=== PATIENT | female | born 1950 | race Caucasian/White ===

== ENCOUNTER → 2017-02-07 10:21 | Outpatient (CLI) | payer MEDICARE ==
[2015-12-29 12:46] VITALS: BMI 18.7
[~2017-02-07 10:21] MED LIST: BROVANA15 MCG/2 M INH; FLUTICASONE PRO16 GM NASAL; HYDROCODON-ACE1 EAC7 PO; IPRAT-ALBUT 0.5-3 ML UPD; MIRALAX17 GM PO; MUCINEX D1 TAB.SR . PO; PREDNISONE10 MG PO; PULMICORT0.5 MG/21 INH; SINGULAIR10 MG PO; XANAX1 MG PO
== END | disposition home or self-care (01) ==
LOC: D.CT 10:21
DX: S09.90XA Unspecified injury of head, initial encounter (principal); X58.XXXA Exposure to other specified factors, initial encounter; Y93.89 Activity, other specified; Y92.029 Unspecified place in mobile home as the place of occurrence of the external cause

== ENCOUNTER → 2017-07-18 08:10 | Outpatient (CLI) | payer MEDICARE ==
[2015-12-29 12:46] VITALS: BMI 18.7
== END | disposition home or self-care (01) ==
LOC: D.US 08:00
DX: E05.90 Thyrotoxicosis, unspecified without thyrotoxic crisis or storm (principal)

== ENCOUNTER 2018-03-04 19:15 | Inpatient (IN) | payer MEDICARE ==
[~2018-03-04] VITALS: Ht 167.6 cm; Wt 45.6 kg
--- NOTE | ~2018-03-04 | MORECARE ---
CASE MANAGEMENT DISCHARGE SUMMARY PATIENT: SHAR SALAZAR UNIT: [id number] ADM DATE: 03/04/18 AGE: 67 : 48 SEX: F ROOM/BED: D.2234 AUTHOR: MATT KRUSE PHYSICIAN: REFERRING PHYSICIAN: BATOOL OSORIO MD DATE OF SERVICE: 03/10/18 Discharge Plan Patient Name: SHAR SALAZAR Facility: [facility]:[place] : 1950 Planned Disposition: Inpatient Rehab Anticipated Discharge Date: Discharge Date: Expected LOS: Initial Reviewer: [email or web address] Initial Review Date: 03/09/2018 Generated: 03/10/18 1:50 pm Comments DCP- Discharge Planning Updated by [email or web address]: Kasie Charles on 03/10/18 11:[address] Called to the room by patient's daughter, Geovanna. She states the patient lives 50% of the time alone. States her brother stays in [facility] 50% of the time and with her mother the other 50%. States she would like to see her mother get inpatient rehab prior to returning home to help with strengthening. States they do not have a DME company at this time, but [facility] and neb meds. States at this time she is paying for her nebulizer meds at her pharmacy. States she does have a nebulizer, walker, BSC and a wheelchair. Discussed availability of inpatient rehab, SNF, and home health as well as DME needs. Patient and daughter are both agreeable to inpatient rehab prior to discharge if she qualifies. CM will continue to follow and assist with discharge planning/needs. DCP- Discharge Planning Updated by [email or web address]: Marlenejusten Randle on 03/09/18 3:[address] Patient Name: SHAR SALAZAR Admission Status: ER Accout number: [id number] Admission Date: 03-04-2018 : 1950 Admission Diagnosis: Attending: BATOOL OSORIO Current LOS: 5 Anticipated DC Date: Planned Disposition: Primary Insurance: MEDICARE A & B Discharge Planning Comments: CM spoke to patient and her son Nils to complete initial dc planning assessment. CM educated Nils on the CM role and verbal consent given by patient to complete assessment. Nils states his mother has become very weak and sob, states she is not on 02 at home and her copd is severe. He states she will need help when she is discharged. May need a SNF or rehab. May need HH, it is too early to tell. She currently has no assistance at home except for her son and daughter come to help her. He states she is unable to care for herself at this time. CM will follow and assist as needed with dc planning needs. Marketing Program Manager: Marlene Randle DCPIA - Discharge Planning Initial Assessment Updated by [email or web address]: Marlene Randle on 03/09/18 4:49 pm * Is the patient Alert and Oriented? No * Pharmacy [facility] * Preadmission Environment Home with Family * ADLs Partial Dependent * Partial ADLs (Assistance needed) Ambulation Dressing Toileting * Equipment Bedside Commode Cane Nebulizer Walker Wheelchair * List name and contact numbers for known caregivers / representatives who currently or will assist patient after discharge: ALLISON GARNETT, [phone] * Community resources currently utilized None * Additional services required to return to the preadmission environment? Yes * Can the patient safely return to the preadmission environment? No * Has this patient been hospitalized within the prior 30 days at any hospital? No Last DP export: 03/10/18 11:41 Patient Name: SHAR SALAZAR Page [id number] at 1250 All edits/amendments must be made on the electronic document DICTATION DATE: 03/10/181248 SUBASSEMBLER: DEVONTE 03/10/18 124 RPT#: [id number] DC DATE: STATUS: ADM IN [facility] [address] [place] [address] END OF REPORT
--- NOTE | ~2018-03-04 | MORECARE ---
CASE MANAGEMENT DISCHARGE SUMMARY PATIENT: SHAR SALAZAR UNIT: [id number] ADM DATE: 03/04/18 AGE: 67 : 48 SEX: F ROOM/BED: D.2234 AUTHOR: MATT KRUSE PHYSICIAN: REFERRING PHYSICIAN: BATOOL OSORIO MD DATE OF SERVICE: 03/10/18 Discharge Plan Patient Name: SHAR SALAZAR Facility: [facility]:[place] : 1950 Planned Disposition: Inpatient Rehab Anticipated Discharge Date: Discharge Date: Expected LOS: Initial Reviewer: [email or web address] Initial Review Date: 03/09/2018 Generated: 03/10/18 1:41 pm Comments DCP- Discharge Planning Updated by [email or web address]: Marlene Randle on 03/09/18 3:[address] Patient Name: SHAR SALAZAR Admission Status: ER Accout number: [id number] Admission Date: 03-04-2018 : 1950 Admission Diagnosis: Attending: BATOOL OSORIO Current LOS: 5 Anticipated DC Date: Planned Disposition: Primary Insurance: MEDICARE A & B Discharge Planning Comments: CM spoke to patient and her son Nils to complete initial dc planning assessment. CM educated Nils on the CM role and verbal consent given by patient to complete assessment. Nils states his mother has become very weak and sob, states she is not on 02 at home and her copd is severe. He states she will need help when she is discharged. May need a SNF or rehab. May need HH, it is too early to tell. She currently has no assistance at home except for her son and daughter come to help her. He states she is unable to care for herself at this time. CM will follow and assist as needed with dc planning needs. Life Insurance Salesperson: Marlene Randle DCPIA - Discharge Planning Initial Assessment Updated by [email or web address]: Marlene Randle on 03/09/18 4:49 pm * Is the patient Alert and Oriented? No * Pharmacy [facility] * Preadmission Environment Home with Family * ADLs Partial Dependent * Partial ADLs (Assistance needed) Ambulation Dressing Toileting * Equipment Bedside Commode Cane Nebulizer Walker Wheelchair * List name and contact numbers for known caregivers / representatives who currently or will assist patient after discharge: ALLISON GARNETT, [phone] * Community resources currently utilized None * Additional services required to return to the preadmission environment? Yes * Can the patient safely return to the preadmission environment? No * Has this patient been hospitalized within the prior 30 days at any hospital? No Last DP export: 03/09/18 4:00 Patient Name: SHAR SALAZAR Page [id number] at 1241 All edits/amendments must be made on the electronic document DICTATION DATE: 03/10/18 1241 HOT STRIP MILL INSPECTOR: DEVONTE 03/10/18 1241 RPT#: [id number] DC DATE: STATUS: ADM IN [facility] [address] [place] [address] END OF REPORT
--- NOTE | ~2018-03-04 | MORECARE ---
CASE MANAGEMENT DISCHARGE SUMMARY PATIENT: SHAR SALAZAR UNIT: [id number] ADM DATE: 03/04/18 AGE: 67 : 48 SEX: F ROOM/BED: D.2234 AUTHOR: MATT KRUSE PHYSICIAN: REFERRING PHYSICIAN: BATOOL OSORIO MD DATE OF SERVICE: 03/09/18 Discharge Plan Patient Name: SHAR SALAZAR Facility: [facility]:[place] : 1950 Planned Disposition: Anticipated Discharge Date: Discharge Date: Expected LOS: Initial Reviewer: [id number] Initial Review Date: 03/09/2018 Generated: 03/09/18 5:59 pm Comments DCP- Discharge Planning Updated by [email or web address]: Marlene Randle on 03/09/18 3:[address] Patient Name: SHAR SALAZAR Admission Status: ER Accout number: [id number] Admission Date: 03-04-2018 : 1950 Admission Diagnosis: Attending: BATOOL OSORIO Current LOS: 5 Anticipated DC Date: Planned Disposition: Primary Insurance: MEDICARE A & B Discharge Planning Comments: CM spoke to patient and her son Nils to complete initial dc planning assessment. CM educated Nils on the CM role and verbal consent given by patient to complete assessment. Nils states his mother has become very weak and sob, states she is not on 02 at home and her copd is severe. He states she will need help when she is discharged. May need a SNF or rehab. May need HH, it is too early to tell. She currently has no assistance at home except for her son and daughter come to help her. He states she is unable to care for herself at this time. CM will follow and assist as needed with dc planning needs. Scoring Machine Operator: Marlene Randle DCPIA - Discharge Planning Initial Assessment Updated by [email or web address]: Marlene Randle on 03/09/18 4:49 pm * Is the patient Alert and Oriented? No * Pharmacy [facility] * Preadmission Environment Home with Family * ADLs Partial Dependent * Partial ADLs (Assistance needed) Ambulation Dressing Toileting * Equipment Bedside Commode Cane Nebulizer Walker Wheelchair * List name and contact numbers for known caregivers / representatives who currently or will assist patient after discharge: ALLISON GARNETT, [phone] * Community resources currently utilized None * Additional services required to return to the preadmission environment? Yes * Can the patient safely return to the preadmission environment? No * Has this patient been hospitalized within the prior 30 days at any hospital? No Last DP export: 03/09/18 3:53 Patient Name: SHAR SALAZAR Page [id number] at 1700 All edits/amendments must be made on the electronic document DICTATION DATE: 03/09/181658 NUTRITIONAL ASSISTANT: DEVONTE 03/09/181658 RPT#: [id number] DC DATE: STATUS: ADM IN [facility] [address] [place] [address] END OF REPORT
--- NOTE | ~2018-03-04 | MORECARE ---
CASE MANAGEMENT DISCHARGE SUMMARY PATIENT: SHAR SALAZAR UNIT: [id number] ADM DATE: 03/04/18 AGE: 67 : 48 SEX: F ROOM/BED: D.2234 AUTHOR: AIXADOC PHYSICIAN: REFERRING PHYSICIAN: ABTOOL OSORIO MD DATE OF SERVICE: 03/13/18 Discharge Plan Patient Name: SHAR SALAZAR Facility: [facility]:[place] : 1950 Planned Disposition: Inpatient Rehab Anticipated Discharge Date: Discharge Date: Expected LOS: Initial Reviewer: [email or web address] Initial Review Date: 03/09/2018 Generated: 03/13/18 12:43 pm Comments DCP- Discharge Planning Updated by [email or web address]: Kasie Soto on 03/13/18 10:[address] patient's daughter, Geovanna Rojas, called me today. She states her brother and her have been discussing comfort care/hospice and would like to speak with hospice. I informed her of the different hospice agencies and she would like her mother to stay in house at [facility] if possible. States she and her family will be here at 2:30 to speak with [facility]. I called Dr. Osorio and order received for hospice to eval and admit if appropriate. I called [facility] and spoke to Bing and she states she will have a nurse here at 2:30 to speak with them. Primary nurse Lois informed. CM will continue to follow and assist with discharge planning/needs. DCP- Discharge Planning Updated by [email or web address]: Kasie Soto on 03/10/18 11:[address] Called to the room by patient's daughter, Geovanna. She states the patient lives 50% of the time alone. States her brother stays in [facility] 50% of the time and with her mother the other 50%. States she would like to see her mother get inpatient rehab prior to returning home to help with strengthening. States they do not have a DME company at this time, but would use [employer] for home oxygen and neb meds. States at this time she is paying for her nebulizer meds at her pharmacy. States she does have a nebulizer, walker, BSC and a wheelchair. Discussed availability of inpatient rehab, SNF, and home health as well as DME needs. Patient and daughter are both agreeable to inpatient rehab prior to discharge if she qualifies. CM will continue to follow and assist with discharge planning/needs. DCP- Discharge Planning Updated by [id number]: Marlene Randle on 03/09/18 3:[address] Patient Name: SHAR SALAZAR Admission Status: ER Accout number: [id number] Admission Date: 03-04-2018 : 1950 Admission Diagnosis: Attending: BATOOL OSORIO Current LOS: 5 Anticipated DC Date: Planned Disposition: Primary Insurance: MEDICARE A & B Discharge Planning Comments: CM spoke to patient and her son Nils to complete initial dc planning assessment. CM educated Nils on the CM role and verbal consent given by patient to complete assessment. Nils states his mother has become very weak and sob, states she is not on 02 at home and her copd is severe. He states she will need help when she is discharged. May need a SNF or rehab. May need HH, it is too early to tell. She currently has no assistance at home except for her son and daughter come to help her. He states she is unable to care for herself at this time. CM will follow and assist as needed with dc planning needs. Senior Devops Engineer: Marlene Razia DCPIA - Discharge Planning Initial Assessment Updated by [email or web address]: Marlene Randle on 03/09/18 4:49 pm * Is the patient Alert and Oriented? No * Pharmacy [facility] * Preadmission Environment Home with Family * ADLs Partial Dependent * Partial ADLs (Assistance needed) Ambulation Dressing Toileting * Equipment Bedside Commode Cane Nebulizer Walker Wheelchair * List name and contact numbers for known caregivers / representatives who currently or will assist patient after discharge: ALLISON GARNETT, [phone] * Community resources currently utilized None * Additional services required to return to the preadmission environment? Yes * Can the patient safely return to the preadmission environment? No * Has this patient been hospitalized within the prior 30 days at any hospital? No External Providers External Provider: [facility](provides inp Next Contact Date: Service Request Date: Service Type: Resolution: Reviewer: Comments: Last DP export: 03/10/18 11:50 Patient Name: SHAR SALAZAR Page 00679 at 1144 All edits/amendments must be made on the electronic document DICTATION DATE: 03/13/181142 CUSTODIAL LABORER: DEVONTE 03/13/181142 RPT#: [id number] DC DATE: STATUS: ADM IN [facility] [address] [place] [address] END OF REPORT
--- NOTE | ~2018-03-04 | MORECARE ---
CASE MANAGEMENT DISCHARGE SUMMARY PATIENT: SHAR SALAZAR UNIT: [id number] ADM DATE: 03/04/18 AGE: 67 : 48 SEX: F ROOM/BED: D.2234 AUTHOR: AIXADOC PHYSICIAN: REFERRING PHYSICIAN: BATOOL OSORIO MD DATE OF SERVICE: 03/14/18 Discharge Plan Patient Name: SHAR SALAZAR Facility: [facility]:[place] : 1950 Planned Disposition: Inpatient Rehab Anticipated Discharge Date: Discharge Date: 03/13/2018 Expected LOS: 0 Initial Reviewer: [id number] Initial Review Date: 03/09/2018 Generated: 03/14/18 6:07 pm Comments DCP- Discharge Planning Updated by [email or web address]: Kasie Huizargail on 03/13/18 10:[address] patient's daughter, Geovanna Rojas, called me today. She states her brother and her have been discussing comfort care/hospice and would like to speak with hospice. I informed her of the different hospice agencies and she would like her mother to stay in house at [facility] if possible. States she and her family will be here at 2:30 to speak with [facility]. I called Dr. Osorio and order received for hospice to eval and admit if appropriate. I called [facility] and spoke to Bing and she states she will have a nurse here at 2:30 to speak with them. Primary nurse Lois informed. CM will continue to follow and assist with discharge planning/needs. DCP- Discharge Planning Updated by [id number]: Kasie Huizargail on 03/10/18 11:[address] Called to the room by patient's daughter, Geovanna. She states the patient lives 50% of the time alone. States her brother stays in [facility] 50% of the time and with her mother the other 50%. States she would like to see her mother get inpatient rehab prior to returning home to help with strengthening. States they do not have a DME company at this time, but would use [employer] for home oxygen and neb meds. States at this time she is paying for her nebulizer meds at her pharmacy. States she does have a nebulizer, walker, BSC and a wheelchair. Discussed availability of inpatient rehab, SNF, and home health as well as DME needs. Patient and daughter are both agreeable to inpatient rehab prior to discharge if she qualifies. CM will continue to follow and assist with discharge planning/needs. DCP- Discharge Planning Updated by [id number]: Marlene Randle on 03/09/18 3:[address] Patient Name: SHAR SALAZAR Admission Status: ER Accout number: [id number] Admission Date: 03-04-2018 : 1950 Admission Diagnosis: Attending: BATOOL OSORIO Current LOS: 5 Anticipated DC Date: Planned Disposition: Primary Insurance: MEDICARE A & B Discharge Planning Comments: CM spoke to patient and her son Nils to complete initial dc planning assessment. CM educated Nils on the CM role and verbal consent given by patient to complete assessment. Nils states his mother has become very weak and sob, states she is not on 02 at home and her copd is severe. He states she will need help when she is discharged. May need a SNF or rehab. May need HH, it is too early to tell. She currently has no assistance at home except for her son and daughter come to help her. He states she is unable to care for herself at this time. CM will follow and assist as needed with dc planning needs. Grocery Store Courtesy Clerk: Marlene Rnadle DCPIA - Discharge Planning Initial Assessment Updated by [email or web address]: Marlene Randle on 03/09/18 4:49 pm * Is the patient Alert and Oriented? No * Pharmacy [facility] * Preadmission Environment Home with Family * ADLs Partial Dependent * Partial ADLs (Assistance needed) Ambulation Dressing Toileting * Equipment Bedside Commode Cane Nebulizer Walker Wheelchair * List name and contact numbers for known caregivers / representatives who currently or will assist patient after discharge: ALLISON GARNETT, [phone] * Community resources currently utilized None * Additional services required to return to the preadmission environment? Yes * Can the patient safely return to the preadmission environment? No * Has this patient been hospitalized within the prior 30 days at any hospital? No Last DP export: 03/13/18 10:44 a Patient Name: SHAR SALAZAR Page 46785 at 1707 All edits/amendments must be made on the electronic document DICTATION DATE: 03/14/181705 PIANO ACCOMPANIST: DEVONTE 03/14/181705 RPT#: [id number] DC DATE:03/13/18 STATUS: DIS IN [facility] [address] [place] [address] END OF REPORT
--- NOTE | ~2018-03-04 | MORECARE ---
CASE MANAGEMENT DISCHARGE SUMMARY PATIENT: SHAR SALAZAR UNIT: [id number] ADM DATE: 03/04/18 AGE: 67 : 48 SEX: F ROOM/BED: D.2234 AUTHOR: MATT KRUSE PHYSICIAN: REFERRING PHYSICIAN: BATOOL OSORIO MD DATE OF SERVICE: 03/09/18 Discharge Plan Patient Name: SHAR SALAZAR Facility: [facility]:[place] : 1950 Planned Disposition: Anticipated Discharge Date: Discharge Date: Expected LOS: Initial Reviewer: [email or web address] Initial Review Date: 03/09/2018 Generated: 03/09/18 5:53 pm DCPIA - Discharge Planning Initial Assessment Updated by [email or web address]: Marlene Randle on 03/09/18 4:49 pm * Is the patient Alert and Oriented? No * Pharmacy [facility] * Preadmission Environment Home with Family * ADLs Partial Dependent * Partial ADLs (Assistance needed) Ambulation Dressing Toileting * Equipment Bedside Commode Cane Nebulizer Walker Wheelchair * List name and contact numbers for known caregivers / representatives who currently or will assist patient after discharge: ALLISON GARNETT, [phone] * Community resources currently utilized None * Additional services required to return to the preadmission environment? Yes * Can the patient safely return to the preadmission environment? No * Has this patient been hospitalized within the prior 30 days at any hospital? No Patient Name: SHAR SALAZAR Page 77473 at 1653 All edits/amendments must be made on the electronic document DICTATION DATE: 03/09/181651 RAMP AND CARGO SUPERVISOR: DEVONTE 03/09/181651 RPT#: [id number] DC DATE: STATUS: ADM IN [facility] [address] [place] [address] END OF REPORT
[2018-03-04] MEDS ORDERED: PRAVACHOL40 MG PO (19:23)
[2018-03-04] MEDS ORDERED: FUROSEMIDE20 MG PO (19:23)
[2018-03-04] MEDS ORDERED: TESSALON PERLE100 MG PO (19:23)
[2018-03-04] MEDS ORDERED: ALENDRONATE SOD35 MG PO (19:24)
[2018-03-04] MEDS ORDERED: SLOW RELEASE I160 MG PO (19:25)
[2018-03-04 19:30] VITALS: BP 107/69
[2018-03-04] MEDS ORDERED: NEURONTIN600 MG PO (19:30)
[2018-03-04 20:00] VITALS: BP 105/65
[2018-03-04 20:38] LABS: BASOPHILS 0 % (0-2); EOSINOPHILS 0 % (0-7); HEMATOCRIT 56.2 % (36.0-48.0); HEMOGLOBIN 19.5 g/dL (12-16); IMMATURE GRANULOCYTES 0.3 % (0-5); LYMPHOCYTES 3.9 % (15-50); MCHC 34.7 g/dL (31.0-37.0); MCV 95.1 fL (80.0-100.0); MEAN PLATELET VOLUME 10.2 fL (7.4-10.4); NEUTROPHILS 88.8 % (40-80); RBC 5.91 10x6/uL (4.00-5.40); WBC 7.4 10x3/uL (4.8-10.8)
[2018-03-04 20:49] LABS: APTT 29.2 SECONDS (22.8-39.4); INR 1.11 (0.85-1.17); PROTIME 13.8 SECONDS (11.6-15.0)
[2018-03-04 20:50] LABS: D-DIMER-QUANTITATIVE 1.9 ug/mLFEU (0.20-0.54)
[2018-03-04 21:00] VITALS: BP 96/61
[2018-03-04 21:08] LABS: PLATELET COUNT 190 10x3/uL (130-400)
[2018-03-04 21:20] LABS: CKMB 5.4 U/L (0.0-3.6); CREATINE KINASE 67 UL (21-215); PRO BNP 33526 pg/mL (0-125)
[2018-03-04 21:22] LABS: TROPONIN-I 0.109 ng/mL (0.000-0.060)
[2018-03-04 22:00] VITALS: BP 99/61
[2018-03-05] VITALS (29 sets, daily range): BP systolic 90–142; BP diastolic 45–86; Ht 167.6 cm; Wt 45.6 kg
[2018-03-05] MEDS ORDERED: TESSALON PERLE100 MG PO (00:23)
[2018-03-05 00:35] LABS: TROPONIN-I 0.154 ng/mL (0.000-0.060)
[2018-03-05 02:36] LABS: APPEARANCE CLEAR (CLEAR); BILIRUBIN NEGATIVE (NEGATIVE); COLOR DK YELLOW (YELLOW); GLUCOSE NEGATIVE (NEGATIVE); KETONE NEGATIVE (NEGATIVE); NITRITE NEGATIVE (NEGATIVE); PROTEIN 1+ mg/dL (NEGATIVE); UROBILINOGEN NORMAL (NORMAL)
[2018-03-05 02:37] LABS: BACTERIA MODERATE /hpf (NONE SEEN); CALCIUM OXALATE CRYSTALS 0-5 /hpf (NONE SEEN); EPITHELIAL CELLS 0-5 /hpf (0-5); HYALINE CAST 0-5 /lpf (NONE SEEN); MUCUS <1+ /lpf (NONE SEEN); RED CELLS - URINE 0-5 /hpf (0-5); WHITE CELLS - URINE 0-5 /hpf (0-5)
[2018-03-05 06:12] LABS: BASOPHILS 0 % (0-2); EOSINOPHILS 0.1 % (0-7); HEMATOCRIT 54.1 % (36.0-48.0); HEMOGLOBIN 18.8 g/dL (12-16); IMMATURE GRANULOCYTES 0.3 % (0-5); LYMPHOCYTES 3.1 % (15-50); MCH 32.5 pg (26.0-34.0); MCHC 34.8 g/dL (31.0-37.0); MCV 93.4 fL (80.0-100.0); MEAN PLATELET VOLUME 10.2 fL (7.4-10.4); MONOCYTES 3.6 % (2-11); NEUTROPHILS 92.9 % (40-80); PLATELET COUNT 175 10x3/uL (130-400); RBC 5.79 10x6/uL (4.00-5.40); RDW 16.3 % (11.5-14.5); WBC 7.7 10x3/uL (4.8-10.8)
[2018-03-05 07:31] LABS: ALKALINE PHOSPHATASE 102 U/L (46-116); ALT (SGPT) 67 U/L (10-68); BILIRUBIN - TOTAL 1.05 mg/dL (0.2-1.3); CALCIUM 9.5 mg/dL (8.5-10.1); CARBON DIOXIDE 39.2 mmol/L (21.0-32.0); CKMB 4.3 U/L (0.0-3.6); CREATINE KINASE 59 UL (21-215); CREATININE - SERUM 1.1 mg/dL (0.6-1.3); SODIUM 127 mmol/L (136-145); UREA NITROGEN 24 mg/dL (7-18); eGFR NON AFRICAN AMERICAN 52 mL/min (90-120)
[2018-03-05 07:40] LABS: CALC OSMOLALITY 260 mosm/kg (275-300); GLUCOSE 136 mg/dL (74-106)
[2018-03-05 07:42] LABS: CHLORIDE - SERUM 82 mmol/L (98-107)
[2018-03-05 12:56] LABS: CKMB 3.5 U/L (0.0-3.6); CREATINE KINASE 70 UL (21-215)
[2018-03-05 12:57] LABS: TROPONIN-I 0.096 ng/mL (0.000-0.060)
[2018-03-06] VITALS (15 sets, daily range): BP systolic 98–132; BP diastolic 45–98
[2018-03-06 04:42] LABS: BASOPHILS 0 % (0-2); EOSINOPHILS 0 % (0-7); HEMATOCRIT 44.1 % (36.0-48.0); HEMOGLOBIN 15.2 g/dL (12-16); IMMATURE GRANULOCYTES 0.2 % (0-5); LYMPHOCYTES 2.2 % (15-50); MCH 32.3 pg (26.0-34.0); MCHC 34.5 g/dL (31.0-37.0); MCV 93.6 fL (80.0-100.0); MEAN PLATELET VOLUME 9.8 fL (7.4-10.4); MONOCYTES 2.9 % (2-11); NEUTROPHILS 94.7 % (40-80); RBC 4.71 10x6/uL (4.00-5.40); RDW 15.9 % (11.5-14.5)
[2018-03-06 04:54] LABS: PLATELET COUNT 215 10x3/uL (130-400); WBC 12.6 10x3/uL (4.8-10.8)
[2018-03-06 05:22] LABS: ALBUMIN 2.3 g/dL (3.4-5.0); ALKALINE PHOSPHATASE 113 U/L (46-116); BILIRUBIN - TOTAL 0.53 mg/dL (0.2-1.3); CALC OSMOLALITY 262 mosm/kg (275-300); CALCIUM 8.1 mg/dL (8.5-10.1); GLUCOSE 179 mg/dL (74-106); MAGNESIUM - SERUM 1.6 mg/dL (1.8-2.4); PHOSPHOROUS 2.4 mg/dL (2.5-4.9); POTASSIUM - SERUM 3.6 mmol/L (3.5-5.1); PROTEIN - SERUM 5.7 g/dL (6.4-8.2); SODIUM 128 mmol/L (136-145); UREA NITROGEN 18 mg/dL (7-18)
[2018-03-06 05:35] LABS: CREATININE - SERUM 0.7 mg/dL (0.6-1.3); eGFR NON AFRICAN AMERICAN 88 mL/min (90-120)
[2018-03-06 05:36] LABS: ALT (SGPT) 38 U/L (10-68); CARBON DIOXIDE 46.7 mmol/L (21.0-32.0); CHLORIDE - SERUM 83 mmol/L (98-107)
[2018-03-07] VITALS (24 sets, daily range): BP systolic 97–146; BP diastolic 52–93
[2018-03-07 06:44] LABS: ALBUMIN 2.3 g/dL (3.4-5.0); ALKALINE PHOSPHATASE 98 U/L (46-116); BILIRUBIN - TOTAL 0.39 mg/dL (0.2-1.3); CALCIUM 8.5 mg/dL (8.5-10.1); GLUCOSE 213 mg/dL (74-106); MAGNESIUM - SERUM 1.6 mg/dL (1.8-2.4); PROTEIN - SERUM 5.7 g/dL (6.4-8.2); SODIUM 129 mmol/L (136-145)
[2018-03-07 06:51] LABS: ALT (SGPT) 27 U/L (10-68); CALC OSMOLALITY 264 mosm/kg (275-300); CREATININE - SERUM 0.5 mg/dL (0.6-1.3); UREA NITROGEN 13 mg/dL (7-18); eGFR NON AFRICAN AMERICAN > 90 mL/min (90-120)
[2018-03-07 06:52] LABS: POTASSIUM - SERUM 2.6 mmol/L (3.5-5.1)
[2018-03-07 06:53] LABS: CHLORIDE - SERUM 84 mmol/L (98-107)
[2018-03-08] VITALS (19 sets, daily range): BP systolic 106–139; BP diastolic 59–100
[2018-03-08 03:52] LABS: BASOPHILS 0.1 % (0-2); EOSINOPHILS 0.1 % (0-7); HEMATOCRIT 50.8 % (36.0-48.0); HEMOGLOBIN 17.3 g/dL (12-16); IMMATURE GRANULOCYTES 0.6 % (0-5); LYMPHOCYTES 1.6 % (15-50); MCH 33.1 pg (26.0-34.0); MCHC 34.1 g/dL (31.0-37.0); MCV 97.3 fL (80.0-100.0); MEAN PLATELET VOLUME 10.4 fL (7.4-10.4); MONOCYTES 2.8 % (2-11); NEUTROPHILS 94.8 % (40-80); PLATELET COUNT 195 10x3/uL (130-400); RBC 5.22 10x6/uL (4.00-5.40); RDW 15.8 % (11.5-14.5); WBC 15.4 10x3/uL (4.8-10.8)
[2018-03-08 04:21] LABS: CALCIUM 9.2 mg/dL (8.5-10.1); CARBON DIOXIDE 38.1 mmol/L (21.0-32.0); CREATININE - SERUM 0.4 mg/dL (0.6-1.3); PHOSPHOROUS 2.1 mg/dL (2.5-4.9); PRO BNP 4609 pg/mL (0-125); SODIUM 127 mmol/L (136-145); UREA NITROGEN 14 mg/dL (7-18); eGFR NON AFRICAN AMERICAN > 90 mL/min (90-120)
[2018-03-08 04:30] LABS: CALC OSMOLALITY 256 mosm/kg (275-300); GLUCOSE 122 mg/dL (74-106); POTASSIUM - SERUM 3.8 mmol/L (3.5-5.1)
[2018-03-08 04:31] LABS: CHLORIDE - SERUM 84 mmol/L (98-107)
[2018-03-09] VITALS: BP 118/56
[2018-03-09 04:00] VITALS: BP 109/65
[2018-03-09 06:10] LABS: BASOPHILS 0.1 % (0-2); EOSINOPHILS 0 % (0-7); HEMATOCRIT 43.2 % (36.0-48.0); HEMOGLOBIN 14.8 g/dL (12-16); IMMATURE GRANULOCYTES 0.4 % (0-5); LYMPHOCYTES 2.5 % (15-50); MCH 32.5 pg (26.0-34.0); MCHC 34.3 g/dL (31.0-37.0); MEAN PLATELET VOLUME 9.8 fL (7.4-10.4); PLATELET COUNT 185 10x3/uL (130-400); RBC 4.56 10x6/uL (4.00-5.40); WBC 15.9 10x3/uL (4.8-10.8)
[2018-03-09 06:15] LABS: MCV 94.7 fL (80.0-100.0)
[2018-03-09 06:31] LABS: CALCIUM 9.3 mg/dL (8.5-10.1); CREATININE - SERUM 0.5 mg/dL (0.6-1.3); GLUCOSE 148 mg/dL (74-106); MAGNESIUM - SERUM 1.7 mg/dL (1.8-2.4); PHOSPHOROUS 2.6 mg/dL (2.5-4.9); POTASSIUM - SERUM 3.3 mmol/L (3.5-5.1); SODIUM 126 mmol/L (136-145); eGFR NON AFRICAN AMERICAN > 90 mL/min (90-120)
[2018-03-09 06:34] LABS: CALC OSMOLALITY 257 mosm/kg (275-300); UREA NITROGEN 19 mg/dL (7-18)
[2018-03-09 06:37] LABS: CARBON DIOXIDE 41.2 mmol/L (21.0-32.0); CHLORIDE - SERUM 85 mmol/L (98-107)
[2018-03-09 08:34] VITALS: BP 129/79
[2018-03-09 11:31] VITALS: BP 130/74
[2018-03-09 17:26] VITALS: BP 133/74
[2018-03-09 20:45] VITALS: BP 116/65
[2018-03-10 04:33] VITALS: BP 118/62
[2018-03-10 06:18] LABS: BASOPHILS 0.1 % (0-2); EOSINOPHILS 0 % (0-7); HEMATOCRIT 44.4 % (36.0-48.0); HEMOGLOBIN 15.5 g/dL (12-16); IMMATURE GRANULOCYTES 0.4 % (0-5); LYMPHOCYTES 3.3 % (15-50); MCH 32.3 pg (26.0-34.0); MCHC 34.9 g/dL (31.0-37.0); MEAN PLATELET VOLUME 9.4 fL (7.4-10.4); MONOCYTES 4.5 % (2-11); NEUTROPHILS 91.7 % (40-80); PLATELET COUNT 172 10x3/uL (130-400); RDW 15.9 % (11.5-14.5); WBC 15.6 10x3/uL (4.8-10.8)
[2018-03-10 06:20] LABS: MCV 92.5 fL (80.0-100.0)
[2018-03-10 06:34] LABS: CALC OSMOLALITY 258 mosm/kg (275-300); CALCIUM 9.2 mg/dL (8.5-10.1); CHLORIDE - SERUM 88 mmol/L (98-107); CREATININE - SERUM 0.5 mg/dL (0.6-1.3); GLUCOSE 153 mg/dL (74-106); POTASSIUM - SERUM 3.9 mmol/L (3.5-5.1); SODIUM 127 mmol/L (136-145); UREA NITROGEN 16 mg/dL (7-18); eGFR NON AFRICAN AMERICAN > 90 mL/min (90-120)
[2018-03-10 08:55] VITALS: BP 102/60
[2018-03-10 12:32] VITALS: BP 127/80
[2018-03-10 16:31] VITALS: BP 111/67
[2018-03-10 20:00] VITALS: BP 110/55
[2018-03-11 06:00] VITALS: BP 148/88
[2018-03-11 08:45] VITALS: BP 124/67
[2018-03-11 12:45] VITALS: BP 110/49
[2018-03-11 17:50] VITALS: BP 99/63
[2018-03-11 20:00] VITALS: BP 94/54
[2018-03-12 05:38] LABS: BASOPHILS 0.1 % (0-2); EOSINOPHILS 0 % (0-7); HEMATOCRIT 43.6 % (36.0-48.0); HEMOGLOBIN 15.2 g/dL (12-16); IMMATURE GRANULOCYTES 0.5 % (0-5); LYMPHOCYTES 2.9 % (15-50); MCH 32.2 pg (26.0-34.0); MCHC 34.9 g/dL (31.0-37.0); MCV 92.4 fL (80.0-100.0); MEAN PLATELET VOLUME 9.4 fL (7.4-10.4); MONOCYTES 5.7 % (2-11); NEUTROPHILS 90.8 % (40-80); RBC 4.72 10x6/uL (4.00-5.40); RDW 15.9 % (11.5-14.5); WBC 15.5 10x3/uL (4.8-10.8)
[2018-03-12 05:41] LABS: CALCIUM 9.7 mg/dL (8.5-10.1); CHLORIDE - SERUM 89 mmol/L (98-107); CREATININE - SERUM 0.5 mg/dL (0.6-1.3); POTASSIUM - SERUM 3.6 mmol/L (3.5-5.1); SODIUM 131 mmol/L (136-145); UREA NITROGEN 20 mg/dL (7-18); eGFR NON AFRICAN AMERICAN > 90 mL/min (90-120)
[2018-03-12 05:51] LABS: PLATELET COUNT 136 10x3/uL (130-400)
[2018-03-12 06:00] VITALS: BP 105/81
[2018-03-12 06:21] LABS: CALC OSMOLALITY 265 mosm/kg (275-300); GLUCOSE 96 mg/dL (74-106)
[2018-03-12 06:22] LABS: CARBON DIOXIDE 40.5 mmol/L (21.0-32.0)
[2018-03-12 09:28] VITALS: BP 90/62
[2018-03-12 12:49] VITALS: BP 93/61
[2018-03-12 16:46] VITALS: BP 96/50
[2018-03-12 20:00] VITALS: BP 113/80
[2018-03-13 05:00] VITALS: BP 89/52
[2018-03-13 06:10] LABS: BASOPHILS 0 % (0-2); EOSINOPHILS 0 % (0-7); HEMATOCRIT 43.6 % (36.0-48.0); HEMOGLOBIN 14.8 g/dL (12-16); IMMATURE GRANULOCYTES 0.4 % (0-5); LYMPHOCYTES 2.3 % (15-50); MCH 31.9 pg (26.0-34.0); MCHC 33.9 g/dL (31.0-37.0); MEAN PLATELET VOLUME 9.6 fL (7.4-10.4); NEUTROPHILS 94.3 % (40-80); PLATELET COUNT 123 10x3/uL (130-400); RBC 4.64 10x6/uL (4.00-5.40); RDW 16.2 % (11.5-14.5); WBC 15.5 10x3/uL (4.8-10.8)
[2018-03-13 06:32] LABS: CALC OSMOLALITY 266 mosm/kg (275-300); CALCIUM 9.5 mg/dL (8.5-10.1); CARBON DIOXIDE 38.2 mmol/L (21.0-32.0); CHLORIDE - SERUM 89 mmol/L (98-107); CREATININE - SERUM 0.6 mg/dL (0.6-1.3); GLUCOSE 103 mg/dL (74-106); SODIUM 132 mmol/L (136-145); UREA NITROGEN 18 mg/dL (7-18); eGFR NON AFRICAN AMERICAN > 90 mL/min (90-120)
[2018-03-13 06:35] LABS: POTASSIUM - SERUM 2.4 mmol/L (3.5-5.1)
[2018-03-13 09:32] VITALS: BP 91/45
[2018-03-13 12:00] VITALS: BP 99/64
== END 2018-03-13 20:26 | disposition hospice, inpatient (51) | DRG 291 ==
LOC: D.ER 19:15 → D.ICU 22:06 → D.M2 22:06 → D.MS 22:06 → D.ICU 23:04 → D.MS 03-08 22:33
PROVIDERS: Family Medicine; Internal Medicine Pulmonary Disease; Legal Medicine
PROC: 05HC33Z Insertion of Infusion Device into Left Basilic Vein, Percutaneous Approach (ICD-10-PCS; principal; 2018-03-09)
PROC: B54NZZA Ultrasonography of Left Upper Extremity Veins, Guidance (ICD-10-PCS; 2018-03-09)
DX: I50.23 Acute on chronic systolic (congestive) heart failure (principal); J15.6 Pneumonia due to other Gram-negative bacteria; J96.21 Acute and chronic respiratory failure with hypoxia; J96.22 Acute and chronic respiratory failure with hypercapnia; J13 Pneumonia due to Streptococcus pneumoniae; J69.0 Pneumonitis due to inhalation of food and vomit; J44.0 Chronic obstructive pulmonary disease with (acute) lower respiratory infection; J44.1 Chronic obstructive pulmonary disease with (acute) exacerbation; F17.203 Nicotine dependence unspecified, with withdrawal; E87.1 Hypo-osmolality and hyponatremia; I24.8 Other forms of acute ischemic heart disease; J20.9 Acute bronchitis, unspecified; I27.20 Pulmonary hypertension, unspecified; M81.0 Age-related osteoporosis without current pathological fracture; E78.5 Hyperlipidemia, unspecified; R11.0 Nausea

== ENCOUNTER 2018-03-13 20:41 | Inpatient (IN) | payer OTHER ==
[~2018-03-13] VITALS: Ht 167.6 cm; Wt 49.1 kg
--- NOTE | ~2018-03-13 | MORECARE ---
CASE MANAGEMENT DISCHARGE SUMMARY PATIENT: SHAR SALAZAR UNIT: [id number] ADM DATE: 03/13/18 AGE: 67 : 48 SEX: F ROOM/BED: D.2234 AUTHOR: MATT KRUSE PHYSICIAN: REFERRING PHYSICIAN: BATOOL OSORIO MD DATE OF SERVICE: 03/17/18 Discharge Plan Patient Name: SHAR SALAZAR [facility] : 1950 Planned Disposition: Anticipated Discharge Date: Discharge Date: 03/14/2018 Expected LOS: 0 Initial Reviewer: [id number] Initial Review Date: 03/17/2018 Generated: 03/17/18 5:40 pm Patient Name: SHAR SALAZAR Page 70821 at 1640 All edits/amendments must be made on the electronic document DICTATION DATE: 03/17/18 1639 INTERMEDIATE DESIGNER: DEVONTE 03/17/18 1639 RPT#: [id number] DC DATE:03/14/18 STATUS: DIS IN [facility] [address] [place] [address] END OF REPORT
[~2018-03-13 20:41] MED LIST changes: +ALENDRONATE SOD35 MG PO; +FUROSEMIDE20 MG PO; +NEURONTIN600 MG PO; +PRAVACHOL40 MG PO; +SLOW RELEASE I160 MG PO; +TESSALON PERLE100 MG PO
[2018-03-13 21:35] VITALS: BP 118/56
[2018-03-14 01:34] VITALS: BP 118/56; Ht 167.6 cm; Wt 49.1 kg
[2018-03-14 05:12] VITALS: BP 107/68
[2018-03-14 06:20] LABS: BASOPHILS 0.1 % (0-2); EOSINOPHILS 0.1 % (0-7); HEMATOCRIT 44.3 % (36.0-48.0); HEMOGLOBIN 15.3 g/dL (12-16); IMMATURE GRANULOCYTES 0.3 % (0-5); MCH 32.3 pg (26.0-34.0); MCHC 34.5 g/dL (31.0-37.0); MCV 93.5 fL (80.0-100.0); MEAN PLATELET VOLUME 10.1 fL (7.4-10.4); NEUTROPHILS 92.5 % (40-80); PLATELET COUNT 133 10x3/uL (130-400); RBC 4.74 10x6/uL (4.00-5.40); RDW 16.1 % (11.5-14.5); WBC 14.4 10x3/uL (4.8-10.8)
[2018-03-14 06:36] LABS: CALC OSMOLALITY 262 mosm/kg (275-300); CALCIUM 9.4 mg/dL (8.5-10.1); CARBON DIOXIDE 39.1 mmol/L (21.0-32.0); CHLORIDE - SERUM 90 mmol/L (98-107); CREATININE - SERUM 0.5 mg/dL (0.6-1.3); GLUCOSE 125 mg/dL (74-106); POTASSIUM - SERUM 3.2 mmol/L (3.5-5.1); SODIUM 130 mmol/L (136-145); UREA NITROGEN 16 mg/dL (7-18); eGFR NON AFRICAN AMERICAN > 90 mL/min (90-120)
[2018-03-14 08:29] VITALS: BP 108/59
== END 2018-03-14 17:20 | DRG 951 ==
LOC: D.MS 20:41
PROVIDERS: Legal Medicine
DX: Z51.5 Encounter for palliative care (principal)